=== PATIENT | male | born 1995 | race Two or more races ===

== ENCOUNTER 2018-12-14 13:48 | Emergency (ER) | payer SELFPAY ==
[~2018-12-14] VITALS: Ht 167.6 cm; Wt 68.0 kg
[2018-12-14 14:16] VITALS: BP 149/72
== END 2018-12-14 20:10 | disposition left against medical advice (07) ==
LOC: ER 13:48
DX: Z76.0 Encounter for issue of repeat prescription (principal); Z53.21 Procedure and treatment not carried out due to patient leaving prior to being seen by health care provider

== ENCOUNTER 2018-12-15 12:50 | Emergency (ER) | payer MEDICAID ==
[~2018-12-15] VITALS: Ht 167.6 cm; Wt 63.5 kg
[2018-12-15 13:27] VITALS: BP 120/77
== END 2018-12-15 14:18 | disposition home or self-care (01) ==
LOC: ER 12:50
DX: F41.9 Anxiety disorder, unspecified (principal); F32.9 Major depressive disorder, single episode, unspecified; F17.210 Nicotine dependence, cigarettes, uncomplicated; Z76.0 Encounter for issue of repeat prescription

== ENCOUNTER 2019-01-13 14:02 | Emergency (ER) | payer MEDICAID ==
[~2019-01-13] VITALS: Ht 165.1 cm; Wt 72.6 kg
[2019-01-13 15:30] VITALS: BP 115/60
== END 2019-01-13 16:02 | disposition home or self-care (01) ==
LOC: ER 14:02
DX: F41.9 Anxiety disorder, unspecified (principal); F32.9 Major depressive disorder, single episode, unspecified; F17.210 Nicotine dependence, cigarettes, uncomplicated; F19.20 Other psychoactive substance dependence, uncomplicated; Z76.0 Encounter for issue of repeat prescription

== ENCOUNTER 2019-04-01 00:05 | Emergency (ER) | payer SELFPAY ==
[~2019-04-01] VITALS: Ht 177.8 cm; Wt 72.6 kg
[2019-04-01 00:46] LABS: Basophils # (auto) 0 uL; Basophils % (auto) 0.5 % (0.0-2.0); Eosinophils # (auto) 0.2 uL; Eosinophils % (auto) 2.5 % (0.0-7.0); Hematocrit 44.9 % (41.0-53.0); Hemoglobin 15.5 g/dL (13.5-17.5); Lymphocytes # (auto) 2.3 uL; Lymphocytes % (auto) 37.6 % (10.0-50.0); Mean Corpuscular Hemoglobin 31.6 pg (28.0-32.0); Mean Corpuscular Hgb Conc. 34.5 g/dL (32.0-36.0); Mean Corpuscular Volume 91.7 fL (80.0-100.0); Monocytes # (auto) 0.7 uL; Monocytes % (auto) 11.2 % (0.0-12.0); Neutrophils % (auto) 48.2 % (37.0-80.0); Platelet Count (auto) 279 10^3/uL (140-450); Red Blood Cells 4.89 10^6/uL (4.5-5.90); Red Cell Distribution Width 13.6 % (11.8-14.3); White Blood Cell 6.2 10^3/uL (4.4-10.8)
[2019-04-01 01:06] LABS: Albumin 3.9 g/dL (3.4-5.0); Potassium 4.1 mmol/L (3.5-5.1)
[2019-04-01 01:08] LABS: Bilirubin, Total 0.4 mg/dL (0.2-1.0); Total Protein 7.8 g/dL (6.4-8.2)
[2019-04-01 01:47] LABS: Alcohol, Urine < 3.0 mg/dL (0-5); Amphetamine Screen, Urine POSITIVE (NEGATIVE); Barbiturate Scree,Urine NEGATIVE (NEGATIVE); Benzodiazephine Screen, Urine NEGATIVE (NEGATIVE); Cannabinoid Screen, Urine POSITIVE (NEGATIVE); Cocaine Screen, Urine NEGATIVE (NEGATIVE); Phencyclidine Screen, Urine NEGATIVE (NEGATIVE)
[2019-04-01 01:54] LABS: Opiate Scree,Urine NEGATIVE (NEGATIVE)
[2019-04-01 02:11] LABS: Urine Amorphous Crystal MOD /hpf (None Seen); Urine Bacteria NONE SEEN /hpf (None Seen); Urine Blood 2+ /uL (Negative); Urine Mucus FEW (None Seen); Urine Specific Gravity 1.027 (1.001-1.035); Urine WBC 7 /hpf (0 - 3)
[2019-04-01] MEDS ORDERED: SODIUM CHLORIDE 0.9% 1,000 ML IV ONE ×2 (07:12)
[2019-04-01] MEDS ORDERED: cefTRIAXone 1GM/50ML D5W 50 ML IV ONE (07:15)
[2019-04-01] MEDS ORDERED: KETOROLAC TROMETH 30 MG/ML 1ML VIAL IV ONE (07:15)
[2019-04-01 08:03] VITALS: BP 103/61
[2019-04-01 08:09] LABS: Basophils # (auto) 0 uL; Basophils % (auto) 0.5 % (0.0-2.0); Eosinophils # (auto) 0 uL; Eosinophils % (auto) 0.7 % (0.0-7.0); Hematocrit 42.4 % (41.0-53.0); Hemoglobin 14.3 g/dL (13.5-17.5); Lymphocytes # (auto) 1.6 uL; Lymphocytes % (auto) 22.1 % (10.0-50.0); Mean Corpuscular Hgb Conc. 33.8 g/dL (32.0-36.0); Mean Corpuscular Volume 91.7 fL (80.0-100.0); Monocytes # (auto) 0.5 uL; Monocytes % (auto) 6.5 % (0.0-12.0); Neutrophils # (auto) 5.2 uL; Neutrophils % (auto) 70.2 % (37.0-80.0); Platelet Count (auto) 266 10^3/uL (140-450); Red Blood Cells 4.63 10^6/uL (4.5-5.90); Red Cell Distribution Width 13.9 % (11.8-14.3); White Blood Cell 7.5 10^3/uL (4.4-10.8)
[2019-04-01 08:30] LABS: Albumin 3.5 g/dL (3.4-5.0); Calcium 8.7 mg/dL (8.5-10.1); Potassium 4.2 mmol/L (3.5-5.1)
[2019-04-01 08:34] LABS: BUN/Creatinine Ratio 16.7; Bilirubin, Total 0.3 mg/dL (0.2-1.0); Total Protein 7.1 g/dL (6.4-8.2)
== END 2019-04-01 09:09 | disposition home or self-care (01) ==
LOC: EDSEX 00:05 → EDBD 00:05 → ER 00:08
DX: N20.0 Calculus of kidney (principal); N39.0 Urinary tract infection, site not specified; F17.210 Nicotine dependence, cigarettes, uncomplicated; F12.10 Cannabis abuse, uncomplicated; F15.10 Other stimulant abuse, uncomplicated
CPT/HCPCS: 36415; 74176; 80053; 80307; 81001; 83690; 85025; 96365; 96375; 99284; J0696; J1885

== ENCOUNTER 2020-09-16 22:10 | Emergency (ER) | payer MEDICAID ==
[~2020-09-16] VITALS: Ht 167.6 cm; Wt 68.0 kg
[2020-09-17 03:15] VITALS: BP 129/81
[2020-09-17] MEDS ORDERED: LIDOCAINE 1% HCL (LOCAL ANESTH.) INJ 20ML MDV IJ ONE ×2 (04:00→04:30)
[2020-09-17] MEDS ORDERED: TETANUS-DIPTH-ACEL PERTUSSIS 0.5ML SYR Tdap IM ONE (04:15)
[2020-09-17] MEDS ORDERED: IBUPROFEN 800 MG TAB PO ONE (04:15)
[2020-09-17] MEDS ORDERED: cefTRIAXone SOD 1,000 MG VL IM ONE (04:15)
== END 2020-09-17 04:54 | disposition home or self-care (01) ==
LOC: ER 22:19
DX: L02.414 Cutaneous abscess of left upper limb (principal); F17.210 Nicotine dependence, cigarettes, uncomplicated; F41.9 Anxiety disorder, unspecified; F32.9 Major depressive disorder, single episode, unspecified; F12.10 Cannabis abuse, uncomplicated; F15.10 Other stimulant abuse, uncomplicated; F11.10 Opioid abuse, uncomplicated
CPT/HCPCS: 10060; 90471; 90715; 96372; 99284; J0696; J2001

== ENCOUNTER 2021-10-06 04:58 | Emergency (ER) | payer MEDICAID ==
[~2021-10-06] VITALS: Ht 170.2 cm; Wt 59.0 kg
[2021-10-06 06:29] LABS: Basophils # (auto) 0.1 10 ^3/uL (0-0.2); Basophils % (auto) 0.6 % (0.0-2.0); Eosinophils # (auto) 0.2 10 ^3/uL (0-0.8); Eosinophils % (auto) 1.7 % (0.0-7.0); Hematocrit 41.1 % (41.0-53.0); Hemoglobin 13.5 g/dL (13.5-17.5); Lymphocytes # (auto) 1.2 10 ^3/uL (0.4-5.4); Lymphocytes % (auto) 11.8 % (10.0-50.0); Monocytes # (auto) 0.7 10 ^3/uL (0-1.3); Neutrophils # (auto) 8.1 10 ^3/uL (1.6-8.6); Neutrophils % (auto) 78.9 % (37.0-80.0); Red Blood Cells 4.67 10^6/uL (4.5-5.90); Red Cell Distribution Width 13.4 % (11.8-14.3); White Blood Cell 10.3 10^3/uL (4.4-10.8)
[2021-10-06 07:00] LABS: Albumin 3.9 g/dL (3.4-5.0); BUN/Creatinine Ratio 11.3; Calcium 8.8 mg/dL (8.5-10.1); Potassium 3.8 mmol/L (3.5-5.1)
[2021-10-06] MEDS ORDERED: ONDANSETRON ODT 4 MG TAB PO ONE (07:00)
[2021-10-06 07:03] LABS: Bilirubin, Total 0.4 mg/dL (0.2-1.0); Total Protein 8.1 g/dL (6.4-8.2)
[2021-10-06] MEDS ORDERED: ONDA-144 PO (08:04)
[2021-10-06 09:08] VITALS: BP 134/80
== END 2021-10-06 09:11 | disposition home or self-care (01) ==
LOC: ER 04:58 → EDBD 04:58 → ER 09:07
DX: R11.2 Nausea with vomiting, unspecified (principal); F17.210 Nicotine dependence, cigarettes, uncomplicated
CPT/HCPCS: 36415; 74018; 80053; 85025; 99284; Q0162

== ENCOUNTER 2021-12-13 21:54 | Emergency (ER) | payer MEDICAID ==
[~2021-12-13] VITALS: Ht 170.2 cm; Wt 72.0 kg
[~2021-12-13 21:54] MED LIST: ONDA-144 PO
[2021-12-13 22:08] VITALS: BP 108/72
== END 2021-12-13 22:14 | disposition left against medical advice (07) ==
LOC: EDBD 21:54 → ER 21:59
DX: T65.91XA Toxic effect of unspecified substance, accidental (unintentional), initial encounter (principal); Z53.21 Procedure and treatment not carried out due to patient leaving prior to being seen by health care provider

== ENCOUNTER 2023-12-19 01:40 | Inpatient (IN) | payer MEDICAID ==
[~2023-12-19] VITALS: Ht 170.2 cm; Wt 59.0 kg
[2023-12-19 03:13] LABS: Basophils # (auto) 0 10 ^3/uL (0-0.2); Basophils % (auto) 0.1 % (0.0-2.0); Eosinophils # (auto) 0.1 10 ^3/uL (0-0.8); Eosinophils % (auto) 1.2 % (0.0-7.0); Hematocrit 39.7 % (41.0-53.0); Hemoglobin 13.7 g/dL (13.5-17.5); Lymphocytes # (auto) 1.1 10 ^3/uL (0.4-5.4); Lymphocytes % (auto) 8.3 % (10.0-50.0); Mean Corpuscular Hemoglobin 30.7 pg (28.0-32.0); Mean Corpuscular Hgb Conc. 34.4 g/dL (32.0-36.0); Mean Corpuscular Volume 89.4 fL (80.0-100.0); Monocytes # (auto) 0.6 10 ^3/uL (0-1.3); Monocytes % (auto) 4.5 % (0.0-12.0); Neutrophils % (auto) 85.9 % (37.0-80.0); Platelet Count (auto) 284 10^3/uL (140-450); Red Blood Cells 4.45 10^6/uL (4.5-5.90); White Blood Cell 12.8 10^3/uL (4.4-10.8)
[2023-12-19 03:28] LABS: Alanine Aminotransferase 18 U/L (7-40); Albumin 4.9 g/dL (3.2-4.8); Alkaline Phosphatase 92 U/L (46-116); Anion Gap 2 (5-15); Aspartate Aminotransferase 18 U/L (13-40); Bilirubin, Total 0.3 mg/dL (0.2-1.0); Blood Urea Nitrogen 12 mg/dL (9-23); Carbon Dioxide 31 mmol/L (20-30); Chloride 105 mmol/L (98-107); Glucose 125 mg/dL (74-106); Lipase 34 U/L (12-53); Potassium 4.3 mmol/L (3.5-5.1); Sodium 138 mmol/L (136-145); Total Protein 7.8 g/dL (5.7-8.2)
[2023-12-19 04:29] VITALS: PULSE 75; RESP 16; O2SAT 97
[2023-12-19] MEDS: SODIUM CHLORIDE 0.9% 1,000 ML IV ONE (04:30)
[2023-12-19] MEDS: metroNIDAZOLE 500MG/100ML 100 ML IV ONE (04:30)
[2023-12-19] MEDS ORDERED: MORPHINE SULFATE INJ 2 MG/ml SYRG IV PRN (04:45)
[2023-12-19] MEDS ORDERED: ONDANSETRON HCL 4 MG/2 ML VIAL IV PRN (04:45)
[2023-12-19] MEDS: levoFLOXacin 500MG 100 ML IV ONE (05:10)
[2023-12-19] MEDS: SODIUM CHLORIDE 0.9% 1,000 ML IV SCH (05:20)
[2023-12-19 09:15] VITALS: TEMP 98.2
[2023-12-19] MEDS: GASTROGRAFIN 120 ML SOL ONE (09:50)
[2023-12-19 10:00] VITALS: PULSE 81; RESP 16; O2SAT 95
[2023-12-19 12:00] VITALS: BP 127/73; PULSE 70; RESP 16; O2SAT 97
== END 2023-12-19 13:25 | disposition left against medical advice (07) | DRG 247 ==
LOC: EDBD 01:40 → ER 01:40 → OVERFLOW 04:41
PROVIDERS: ADMIT Nurse Practitioner; ATTEND Internal Medicine
DX: K56.609 Unspecified intestinal obstruction, unspecified as to partial versus complete obstruction (principal); K59.00 Constipation, unspecified; F17.210 Nicotine dependence, cigarettes, uncomplicated; Z53.29 Procedure and treatment not carried out because of patient's decision for other reasons; Z79.899 Other long term (current) drug therapy
CPT/HCPCS: 36415; 74176; 74250; 80053; 83690; 85025; 96365; 99291; G0378; J1956; J3490

== ENCOUNTER 2024-04-17 19:41 | Emergency (ER) | payer SELFPAY ==
[~2024-04-17] VITALS: Ht 177.8 cm; Wt 72.7 kg
[2024-04-18 00:10] VITALS: BP 128/88; PULSE 75; RESP 18; TEMP 98.7; O2SAT 98
[2024-04-18] MEDS ORDERED: AMOX875T4 PO (01:01)
[2024-04-18] MEDS ORDERED: IBUP-1456 PO (01:01)
--- NOTE | 2024-04-18 01:01 | ED.PDOC ---
Eye-HPI HPI Comments 29-year-old male presents to ER with complaints of right-sided earache pain x2 hours. Patient reports that he has been experiencing 3/10 right-sided earache pain that started 2 hours prior to arrival to ER. Reports that he use [id number] eardrops without relief. Patient presents to ER ambulatory on arrival, with steady gait, in no distress. Denies headache, skin changes, bleeding/drainage from ear, fever, headache, dizziness or any further symp toms/complaints Chief Complaint: Earache Time Seen by MD: 19:56 Primary Care Provider: N/A Reviewed Notes: Nurses Notes, Medications, Allergies Allergies: Coded Allergies: NO KNOWN ALLERGIES (Unverified , 12/15/18) Home Meds Active Scripts Ibuprofen (Ibuprofen) 800 Mg Tab, 1 TAB PO TID PRN, #30 TAB 0 Refills Prov:MEREDITH MCKOY 04/18/24 Amoxicillin & Pot Clavulanate (Amoxicillin/Potassium Cla) 875 Mg Tab, 1 TAB PO BID for 7 Days, #14 TAB 0 Refills Prov:MEREDITH MCKOY 04/18/24 Ondansetron (Zofran) 4 Mg Tab, 4 MG PO Q6HP PRN for 15 Days, #10 TAB Prov:HAO APONTE MD 10/06/21 Information Source: Patient Mode of Arrival: EMS Past Medical History PAST MEDICAL HISTORY: Anxiety, Depression Surgical History: Denies all surgeries Family History Family History: Unknown Social History Smoker: Cigarettes, Less Than 1 Pack/Day Alcohol: Denies ETOH Use Drugs: Denies Drug Use Lives In: Home Constitutional: denies: chills, diaphoresis, fatigue, fever, malaise, sweats, weakness, others EENTM: reports: others ( STATED IN HPI) Respiratory: denies: cough, hemoptysis, orthopnea, SOB at rest, shortness of breath, SOB with excertion, stridor, wheezing, others Cardiovascular: denies: chest pain, dizzy spells, diaphoresis, Dyspnea on exertion, edema, irregular heart beat, left arm pain, lightheadedness, palpitations, PND, syncope, others Gastrointestinal: denies: abdomen distended, abdominal pain, blood streaked bowels, constipated, diarrhea, dysphagia, difficulty swallowing, hematemesis, melena, nausea, poor appetite, poor fluid intake, rectal bleeding, rectal pain, vomiting, others Genitourinary: denies: burning, dysuria, flank pain, frequency, hematuria, incontinence, penile discharge, penile sore, pain, testicle pain, testicle swelling, urgency, others Neurological: denies: dizziness, fainting, headache, left sided numbness, left sided weakness, numbness, paresthesia, pre-existing deficit, right sided numbness, right sided weakness, seizure, speech problems, tingling, tremors, weakness, others Musculoskeletal: denies: back pain, gout, joint pain, joint swelling, muscle pain, muscle stiffness, neck pain, others Integumetry: denies: bruises, change in color, change in hair/nails, dryness, laceration, lesions, lumps, rash, wounds, others Allergic/Immunocompromised: denies: Difficulty Healing, Frequent Infections, Hives, Itching, others Hematologic/Lymphatic: denies: anemia, blood clots, easy bleeding, easy bruising, swollen glands, others Endocrine: denies: excessive hunger, excessive sweating, excessive thirst, excessive urination, flushing, intolerance to cold, intolerance to heat, unexpl ained weight gain, unexplained weight loss, others Psychiatric: denies: anxiety, bipolar disorder, depression, hopeless, panic disorder, schizophrenia, sleepless, suicidal, others Physical Exam General Appearance: No Apparent Distress HEENT: PERRL/EOMI, Pharynx Normal, Other (MILD ERYTHEMA/BULGING NOTED TO RIGHT TM. REMAINDER BILATERAL EAR EXAM-UNREMARKABLE) Neck: Full Range of Motion, Non-Tender, Normal Respiratory: Chest Non-Tender, Lungs Clear, No Accessory Muscle Use, No Respiratory Distress, Normal Breath Sounds Cardiovascular: No Murmur, No Gallop, Regular Rate/Rhythm Breast Exam: Deferred Gastrointestinal: NOT DONE Genitalia: Deferred Pelvic: Deferred Rectal: Deferred Extremities: Normal capillary refill, Normal range of motion Neurologic: Alert, No Motor Deficits, Normal Affect, Normal Mood, No Sensory Deficits Cerebellar Function: Normal Reflexes: Normal Skin: Dry, Normal Color, Warm Peripheral Pulses: 2+ Radial (R), 2+ Radial (L), 2+ Brachial (R), 2+ Brachial (L) Lymphatic: No Adenopathy Was a procedure done? Was a procedure done?: No Sedation Sedation?: No EENT DIFF Eye: N/A Ear: Abrasion, Cerumen Impaction, Foreign Body, Otitis Externa X-Ray, Labs, Meds, VS Vital Signs Date Time Temp Pulse Resp B/P (MAP) Pulse Ox O2 Delivery O2 Flow Rate FiO2 04/18/24 00:10 75 18 98 Room Air* 0 21 04/18/24 00:10 98.7 75 18 128/88 (101) 98 98.7 04/17/24 19:43 98.8 78 18 128/88 (101) 99 ROCEPHIN 1 G IM ORDERED TORADOL 60 MG IM ORDERED PATIENT HAD IMPROVEMENT IN SYMPTOMS AND IN NO DISTRESS PRIOR TO DISCHARGE ADVISED TO FOLLOW UP WITH PCP IN 1-2 DAYS PATIENT VERBALIZED UNDERSTANDING AND AGREEABLE WITH CURRENT PLAN OF CARE ADVISED TO RETURN TO ER IMMEDIATELY IF SYMPTOMS WORSEN Time of 1ST Reevaluation: 00:44 Reevaluation 1ST: N/A Patient Education/Counseling: Diagnosis, Treatment, Prognosis, Need For Follow Up Family Education/Counseling: No Family Present Departure 1 Departure Time of Disposition: 01:00 Impression: Primary Impression: Otitis media of right ear Qualified Codes: H66.91 - Otitis media, unspecified, right ear Disposition: 01 HOME / SELF CARE / HOMELESS Condition: Stable e-Prescriptions Ibuprofen (Ibuprofen) 800 Mg Tab 1 TAB PO TID PRN, #30 TAB 0 Refills Prov: MEREDITH MCKOY 04/18/24 Amoxicillin & Pot Clavulanate (Amoxicillin/Potassium Cla) 875 Mg Tab 1 TAB PO BID for 7 Days, #14 TAB 0 Refills Prov: MEREDITH MCKOY 04/18/24 Discharged With: Self Critical Care Note Critical Care Time?: No Stability Stability form required: No Heart Score Heart Score: Heart Score Response (Comments) Value History N/A 0 EKG N/A 0 Age N/A 0 Risk Factors N/A 0 Troponin N/A 0 Total 0 MEREDITH MCKOY Apr 18, 2024 01:01
[2024-04-18] MEDS: KETOROLAC TROMETH 60MG/2ML VIAL IM ONE (01:06)
[2024-04-18] MEDS: cefTRIAXone SOD 1,000 MG VL IM ONE (01:06)
== END 2024-04-18 01:22 | disposition home or self-care (01) ==
LOC: EDBD 19:41 → ER 19:41
DX: H66.91 Otitis media, unspecified, right ear (principal); F41.9 Anxiety disorder, unspecified; F32.A Depression, unspecified; F17.210 Nicotine dependence, cigarettes, uncomplicated; Z79.899 Other long term (current) drug therapy
CPT/HCPCS: 96372; 99284; J0696; J1885